=== PATIENT | female | born 1965 | race Caucasian/White ===

== ENCOUNTER 2024-06-16 13:23 | Outpatient (OUT) | payer MEDICARE, MEDICAID, SELFPAY ==
--- NOTE | 2024-06-16 13:35 | ECG_ITS ---
[facility] Test Date: 2024-06-16 Pat Name: BALTAZAR BRYAN Department: Room: - Gender: Female Client Retention Specialist: : 1965 Requested By: ELISEO RAINES Order Number: [id number] Reading MD: RAUL OROZCO M.D. Measurements Intervals [place] Rate: 84 P: 79 ID: 170 QRS: 63 QRSD: 83 T: 80 QT: 367 QTc: 434 Interpretive Statements SINUS RHYTHM Normal ECG No previous ECG available for comparison Electronically Signed On 06-16-2024 19:26:43 EDT by RAUL OROZCO M.D.
--- NOTE | 2024-06-16 13:35 | XR_ITS ---
The [address] [address] Patient Name: BALTAZAR BRYAN MRN: [id number] date: 1965 Sex: F Assigned Patient Location: [facility] Current Patient Location: [facility] Accession/Order Number: [id number] Exam Date: 06/16/2024 15:04 Report Date: 06/16/2024 15:04 At the request of: ELISEO RAINES MD Procedure: XR chest 2V Chest 2 views CLINICAL HISTORY: Preop exam COMPARISON: None FINDINGS: Heart normal size. Lungs are clear. No free air. XR/XR chest 2V IMPRESSION: NO ACUTE CARDIOPULMONARY ABNORMALITY. Impression dictated by: Roberto Narayanan Jr., DJennyOJenny06/16/2024 3:04 PM Dictation Location: [place] [address] Electronically authenticated by: [id number] Y Date: 06/16/2024 15:04
[2024-06-16 14:29] LABS: Basophils Percent Auto 0.5 % (0.2-2.0); Eosinophils Absolute Auto 0.2 10^3/uL (0.0-0.7); Eosinophils Percent Auto 2.4 % (0.9-7.0); Hemoglobin 14.3 g/dL (12.0-16.0); Immature Granulocytes Abs Auto 0.02 10^3/uL (0.00-0.03); Immature Granulocytes Pct Auto 0.2 % (0.0-0.5); Lymphocytes Absolute Auto 2.3 10^3/uL (1.2-3.8); Lymphocytes Percent Auto 28.1 % (20.5-60.0); Mean Corpuscular HGB Conc 33.3 g/dL (29.9-35.2); Mean Corpuscular Hemoglobin 32.4 pg (26.7-34.0); Mean Corpuscular Volume 97.3 fL (81.0-99.0); Mean Platelet Volume 9.6 fL (9.5-13.5); Monocytes Absolute Auto 0.5 10^3/uL (0.3-0.8); Monocytes Percent Auto 6.4 % (1.7-12.0); Neutrophils Percent Auto 62.4 % (43.0-75.0); Platelet Count 277 10^3/uL (150-450); Red Blood Count 4.42 10^6/uL (4.20-5.40)
[2024-06-16 14:38] LABS: Anion Gap 13.7; BUN Creatinine Ratio 13.8; Calcium 9.1 mg/dL (8.5-10.1); Carbon Dioxide 25.1 mmol/L (21.0-32.0); Chloride 105 mmol/L (98-107); Estimated GFR (African America >60 (>=60 mL/min/1.73m^2); Estimated GFR (Non-African Ame >60 (>=60 mL/min/1.73m^2); Glucose 93 mg/dL (74-106); Potassium 4.8 mmol/L (3.5-5.1); Sodium 139 mmol/L (136-145)
== END 2024-06-16 13:24 | disposition home or self-care (01) ==
LOC: PST 13:30
PROVIDERS: Family Provider Internal Medicine; PCP Nurse Practitioner; Visit Provider Otolaryngology
DX: Z01.810 Encounter for preprocedural cardiovascular examination (principal); Z01.812 Encounter for preprocedural laboratory examination; J38.3 Other diseases of vocal cords
CPT/HCPCS: 71046; 80048; 85025; 93005

== ENCOUNTER 2024-06-29 09:27 | Day surgery (SDC) | payer MEDICARE, MEDICAID, SELFPAY ==
[2024-06-16 14:16] VITALS: BP 104/71; PULSE 100; TEMP 36.2; O2SAT 97; BMI 28.5
[2024-06-29] VITALS (13 sets, daily range): BP systolic 85–126; BP diastolic 54–84; PULSE 88–108; TEMP 36.3–36.7; O2SAT 92–98; BMI 28.5
--- NOTE | 2024-06-29 | OP_ITS ---
OPERATION DATE: 06/29/2024 PRIMARY CARE PHYSICIAN: Shawn Frank D.O. SURGEON: Tara Dow M.D. PREOPERATIVE DIAGNOSIS: Right true vocal cord lesion. POSTOPERATIVE DIAGNOSIS: Right true vocal cord lesion. PROCEDURE: Microlaryngoscopy and biopsy of the right true vocal cord. ANESTHESIA: General endotracheal. COMPLICATIONS: None. 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 INDICATIONS: This 59-year-old woman presented with chronic hoarseness, a one pack per day history of smoking, a history of reflux and a family history of her mother having squamous cell carcinoma of the larynx requiring a total laryngectomy. Patient also has a history of lung cancer. PROCEDURE: Patient identified in the holding area and taken back to the OR, where she was placed in the supine position. After induction of general endotracheal anesthesia, the table was turned, a shoulder roll placed, and a tooth guard put in position. An anterior commissure laryngoscope was passed along the right side of the mouth, and the endolarynx visualized. The scope was then suspended, and an operating endoscope was brought into position. A photograph of the larynx was obtained. Then, using a straight scissor, control incisions were made anterior and posterior to the area of leukoplakia, as well as medially, to avoid extension of the biopsy into the free margin of the true vocal cord. Then, using a straight cup forcep biopsy was made that remained confined to the prepared area. There was self-limited bleeding, and the patient was awakened and taken to the recovery room in good condition. NEAL
[2024-06-29] MEDS: LACTATED RINGER'S SOLUTION 1,000 ML 50 ML IV ×2 (10:03→12:09)
[2024-06-29] MEDS: IPRATROPIUM/ALBUTEROL SULFATE 3 ML AMPUL.NEB IH (10:25)
[2024-06-29] MEDS: SCOPOLAMINE 1 MG/3 DAYS TRANSDERM PATCH 1 PATCH TD (10:34)
--- NOTE | 2024-06-29 13:15 | PC.NURSE ---
1250: pt pain 0/10,complains of hoarseness.
== END 2024-06-29 13:05 | disposition home or self-care (01) ==
PROVIDERS: Family Provider Internal Medicine; PCP Nurse Practitioner; Visit Provider Otolaryngology
PROC: (CPT 320; principal; 2024-06-29 10:35)
DX: J38.3 Other diseases of vocal cords (principal); R49.0 Dysphonia; J44.9 Chronic obstructive pulmonary disease, unspecified; Z80.8 Family history of malignant neoplasm of other organs or systems; L83 Acanthosis nigricans; R23.4 Changes in skin texture; F17.210 Nicotine dependence, cigarettes, uncomplicated; G47.33 Obstructive sleep apnea (adult) (pediatric); E78.5 Hyperlipidemia, unspecified; K21.9 Gastro-esophageal reflux disease without esophagitis; Z85.118 Personal history of other malignant neoplasm of bronchus and lung; Z92.21 Personal history of antineoplastic chemotherapy
CPT/HCPCS: 31536; 36415; 88305; 94640; J1100; J2250; J2405; J2704; J3010